=== PATIENT | female | born 1940 | race African-American/Black ===

== ENCOUNTER 2025-05-26 07:44 | Outpatient (CLI) | payer MEDICARE ==
[2025-05-26] MEDS ORDERED: Iopamidol 300 61% 100 ML VIAL FS ONE (11:34)
== END 2025-05-26 07:45 | disposition home or self-care (01) ==
LOC: CSHCT 07:44
PROVIDERS: ATTEND Urology
DX: N13.2 Hydronephrosis with renal and ureteral calculous obstruction (principal); N28.1 Cyst of kidney, acquired; E27.8 Other specified disorders of adrenal gland
CPT/HCPCS: 74178

== ENCOUNTER 2025-07-01 10:07 | Outpatient (CLI) | payer MEDICARE | END 2025-07-01 10:08 | disposition home or self-care (01) | LOC: CSHCT 10:07 | PROVIDERS: ATTEND Urology | DX: N20.0 Calculus of kidney (principal) | CPT/HCPCS: 74176 ==

== ENCOUNTER 2025-10-05 03:30 | Emergency (ER) | payer MEDICARE ==
[2025-10-05] MEDS ORDERED: Ondansetron PF 4 MG/2 ML Vial ONE (04:02)
[2025-10-05] MEDS ORDERED: cloNIDine 0.1 MG TAB ONE (04:02)
[2025-10-05 04:03] LABS: #Basophils Less than 0.03 10x3/uL (0.0-0.2); #Eosinophils 0.18 10x3/uL (0.0-0.5); #Monocytes 0.61 10x3/uL (0.0-1.1); #Neutrophils 2.33 10x3/uL (1.5-8.4); %Basophils 0.2 % (0.0-2.0); %Eosinophils 3.1 % (0.0-6.0); %Lymphocytes 46.3 % (18.0-47.0); %Monocytes 10.4 % (0.0-10.0); %Neutrophils 39.7 % (40.0-75.0); Hematocrit 28.4 % (34.9-44.5); Hemoglobin 9.2 g/dL (12.0-15.5); Mean Corpuscular Hemoglobin 28.7 pg (27.0-33.0); Mean Corpuscular Volume 88.5 fL (81.6-98.3); Platelet Count 250 10x3/uL (150-450); Red Blood Cell (RBC) Count 3.21 10x6/uL (3.90-5.03); White Blood Cell (WBC) Count 5.87 10x3/uL (3.5-10.5)
[2025-10-05 04:21] LABS: ALT (SGPT) 28 U/L (Less than 34); AST (SGOT) 41 U/L (11-34); Albumin 3.4 g/dL (3.1-4.5); Alkaline Phosphatase 79 U/L (40-110); Anion Gap 12 mmol/L (10-20); BUN (Urea Nitrogen) 24 mg/dL (9.8-20.1); Bilirubin, Total 0.3 mg/dL (0.3-1.2); Calc. Creatinine Clearance 0 mL/min (70-130); Calcium 8.9 mg/dL (7.8-10.44); Carbon Dioxide 26 mmol/L (23-31); Chloride 109 mmol/L (98-107); Globulin 3.2 g/dL (2.4-3.5); Glucose 93 mg/dL (83-110); Potassium 3.7 mmol/L (3.5-5.1); Sodium 143 mmol/L (136-145)
== END 2025-10-05 06:58 | disposition home or self-care (01) ==
LOC: CSHERS 03:30
DX: M16.11 Unilateral primary osteoarthritis, right hip (principal); I10 Essential (primary) hypertension; F17.210 Nicotine dependence, cigarettes, uncomplicated; Z79.82 Long term (current) use of aspirin; Z79.899 Other long term (current) drug therapy
CPT/HCPCS: 72192; 73502; 80053; 85025; 93005; J2270; J2405; 96374; 96375